=== PATIENT | male | born 1975 | race Caucasian/White ===

== ENCOUNTER 2017-01-16 14:27 | Emergency (ER) | payer MEDICAID ==
[2017-01-16 14:41] VITALS: BP 142/63
--- NOTE | 2017-01-16 15:28 | UC ---
UC General HPI - HPI Summary HPI Summary: 2 WEEKS OF RIGHT SIDED PLEURITIC PAIN/POSTERIOR SHOULDER PAIN. NO DYSPNEA, JUST FEELS HE CAN NOT TAKE A DEEP BREATH WITHOUT PAIN. ALSO HAS PAIN WITH MOVEMENT. HAS HAD 3-[address] NO COUGH, CONGESTION, EAR PAIN OR FEVER. NO CHEST PAIN. NO LEG SWELLING OR CALF PAIN. - History of Current Complaint Chief Complaint: UCGeneralIllness Stated Complaint: SOB PAIN UNDER SHOULDER Time Seen by Provider: 01/16/17 14:31 Hx Obtained From: Patient, Family/Geography Department Chair - Onset/Duration: Gradual Onset, Lasting Weeks, Still Present Timing: Constant Onset Severity: Moderate Current Severity: Moderate Pain Intensity: 5 Pain Location at: RIGHT MID BACK Character: SHARP Associated Signs & Symptoms: Positive: Back Pain. Negative: Cough, Chest Pain, Dizziness, Diaphoresis, Fever, Headache, Nausea, Palpitations, Recent Medication Changes, Syncope, SOB, Trauma, Weakness - Allergy/Home Medications Allergies/Adverse Reactions: Allergies Allergy/AdvReac Type Severity Reaction Status Date / Time Amoxicillin Allergy Rash Verified 01/16/17 14:41 Home Medications: Home Medications Esomeprazole Magnesium [Nexium 24Hr] 1 tab PO DAILY 01/16/17 [History Confirmed 01/16/17] PMH/Surg Hx/FS Hx/Imm Hx Previously Healthy: Yes - Surgical History Surgical History: Yes Surgery Procedure, Year, and Place: SURGERY FOR FX SKULL, 1983, [place]. HERNIA, 1999, [facility]. APPENDECTOMY, 2010, [facility] – [place]. left foot- 5th toe repair - Family History Known Family History: Positive: Cardiac Disease - MGF, Hypertension - MGF, Diabetes - MOM Family History: PATERNAL HISTORY UNKNOWN - Social History Alcohol Use: Occasionally Alcohol Amount: 2 PER WEEK Substance Use Type: None Smoking Status (MU): Never Smoked Tobacco Have You Smoked in the Last Year: No Review of Systems Constitutional: Negative Respiratory: Other - RIGHT SIDED PLEURITIC PAIN Cardiovascular: Negative Gastrointestinal: Negative All Other Systems Reviewed And Are Negative: Yes Physical Exam Triage Information Reviewed: Yes Appearance: Well-Appearing, No Pain Distress, Well-Nourished Vital Signs: Initial Vital Signs Temp 97.8 F 01/16/17 14:36 Pulse 81 01/16/17 14:36 Resp 20 01/16/17 14:36 BP 142/63 01/16/17 14:36 Pulse Ox 96 01/16/17 14:36 Vital Signs Reviewed: Yes Eyes: Positive: Conjunctiva Clear ENT: Positive: Hearing grossly normal, Pharyngeal erythema, TMs normal Neck: Positive: Supple, Nontender, No Lymphadenopathy Respiratory Exam: Normal Cardiovascular Exam: Normal Abdomen Description: Positive: Soft Musculoskeletal: Positive: No Edema Neurological: Positive: Alert Psychological: Positive: Age Appropriate Behavior Skin: Negative: rashes Diagnostics - Radiology CHEST XRAY Xray Interpretation: No Acute Changes Radiology Interpretation Completed By: Radiologist - EKG Cardiac Rate: NL Cardiac Rhythm: Sinus: Normal Ectopy: None ST Segment: Normal Course/Dx - Course Course Of Treatment: CXR UNREMARKABLE. EKG UNREMARKABLE. NO PERC CRITERIA. PT LOW RISK. WILL TREAT WITH PREDNISONE AND NSAIDS FOR PLEURISY AND ADVISED FOLLOW- UP IN 1-2 WEEKS IF NO IMPROVEMENT. TO ER WITHOUT FAIL IF SYMPTOMS WORSEN. - Differential Dx - Multi-Symptom Provider Diagnoses: PLEURISY Discharge - Discharge Plan Condition: Stable Disposition: HOME Prescriptions: Naproxen [Naproxen EC] 500 mg PO BID PRN #30 tab PRN Reason: Pain predniSONE TAB* [Deltasone TAB*] 50 mg PO DAILY #5 tab Patient Education Materials: Pleurisy (ED) Additional Instructions: EKG UNREMARKABLE. CHEST XRAY UNREMARKABLE. CALL THE NUMBER BELOW FOR ASSISTANCE IN ESTABLISHING WITH A PCP An additional resource available to assist in finding the appropriate physician for your health care needs is the [facility] ([facility]). You may contact them by calling [phone]. GO TO ER WITHOUT FAIL IF YOU DEVELOP CHEST PAIN, SHORTNESS OF BREATH, NAUSEA, SWEATS, FEVER, DIZZINESS OR ANY OTHER CONCERNING SYMPTOMS.
--- NOTE | 2017-01-16 15:47 | RAD ---
INDICATION: Pleuritic chest pain x2 weeks COMPARISON: None TECHNIQUE: PA and lateral views of the chest were obtained. FINDINGS: The heart and mediastinum are normal in size and contour. The lungs are grossly clear. There is no evidence of large pleural effusion. Visualized bones are normal for the patient's age. There is no radiographic evidence of free air beneath the diaphragm IMPRESSION: No radiographic evidence of acute cardiopulmonary disease.
== END 2017-01-16 16:20 | disposition home or self-care (01) ==
LOC: UCEAST 14:27
DX: R09.1 Pleurisy (principal)
CPT/HCPCS: 71020; 93005; 99212; G0463